=== PATIENT | male | born 1985 | race Two or more races ===

== ENCOUNTER 2021-06-07 12:55 | Emergency (ER) | payer SELFPAY ==
[~2021-06-07] VITALS: Ht 165.1 cm; Wt 68.0 kg
[2021-06-07 16:20] VITALS: BP 106/70
[2021-06-07] MEDS ORDERED: KETOROLAC TROMETH 60MG/2ML VIAL IM ONE (16:30)
== END 2021-06-07 16:49 | disposition home or self-care (01) ==
LOC: ER 12:55
DX: S39.012A Strain of muscle, fascia and tendon of lower back, initial encounter (principal); S46.911A Strain of unspecified muscle, fascia and tendon at shoulder and upper arm level, right arm, initial encounter; M25.551 Pain in right hip; E11.9 Type 2 diabetes mellitus without complications; X58.XXXA Exposure to other specified factors, initial encounter; Y93.89 Activity, other specified; Y92.89 Other specified places as the place of occurrence of the external cause; Y99.8 Other external cause status
CPT/HCPCS: 72100; 73030; 73501; 96372; 99284; J1885